=== PATIENT | female | born 1930 | race Caucasian/White ===

== ENCOUNTER 2016-05-18 18:18 | Inpatient (IN) | payer OTHER, MEDICARE ==
[~2016-05-18] VITALS: Ht 152.4 cm; Wt 49.9 kg
--- NOTE | ~2016-05-18 | EKG ---
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 : 1930 Requested By: Lorna Belcher Order Number: [id number] MD: Fuentes Mclaughlin Measurements Intervals [place] Rate: 79 P: 34 AL: 173 QRS: -30 QRSD: 91 T: -2 QT: 368 QTc: 422 Interpretive Statements Sinus rhythm Ventricular premature complex Left axis deviation Poor R wave progression Compared to ECG 05/15/2016 11:34:03 Ventricular premature complex(es) now present Electronically Signed On 05-20-2016 9:00:11 CDT by Fuentes Mclaughlin [email or web address] <ELECTRONICALLY SIGNED> By: Fuentes Mclaughlin MD, [facility] 05/20/16 0900 17 17 Fuentes Mclaughlin MD, [facility] /EPI
[~2016-05-18 18:18] MED LIST: ADVIL100 M2; ASPIR 8181 MG PO; AVELOX400 MG PO; CENTRUM SILVER1 EAC4 PO; COLACE100 MG PO; CRANBERRY 12,61 EACH PO; DUONEB 2.5-0.5 M3 ML INH; HEPARIN SO5000 UNIT/ SUBQ; HYDROCODONE-AP1 EAC6 PO; IBUPROFEN 400400 M2 PO; LASIX 20 MG TAB20 MG PO; LEVOFLOXACIN250 MG PO; LISINOPRIL20 MG PO; LOPRESSOR100 MG PO; LOPRESSOR50 PO; POTASSIUM20 PO; PROBIOTIC1 EAC1 PO; PROTONIX40 M1 PO; RESTORIL7.5 MG PO; SIMVASTATIN40 MG PO; TRAMADOL 50 MG50 MG PO; VITAMIN D1000 UNI1 PO; ZOFRAN ODT4 MG PO
[2016-05-18 18:19] VITALS: BP 168/77
[2016-05-18 18:52] LABS: ABSOLUTE NEUTROPHILS 3.4 thou/uL (1.4-8.2); BASOPHILS 0.5 % (0.0-2.0); EOSINOPHILS 0.6 % (0.0-3.0); HEMATOCRIT 33.5 % (37.0-47.0); HEMOGLOBIN 11.3 gm/dL (12.0-15.0); LYMPHOCYTES 29.7 % (24.0-44.0); MCH 29.1 pg (26.0-34.0); MCHC 33.8 g/dL (28.0-37.0); MCV 86.2 fL (80.0-100.0); MONOCYTES 8.1 % (1.0-8.0); PLATELET COUNT 192 thou/uL (150-400); POLYS 61.1 % (36.0-66.0); RBC 3.88 mil/uL (4.20-5.00); RDW 14.4 % (10.5-14.5); WBC 5.6 thou/uL (4.0-11.0)
[2016-05-18 18:54] LABS: MANUAL DIFF NO
[2016-05-18 19:10] LABS: ANION GAP 8 mmol/L (7-16); BUN 28 mg/dL (7-18); CALCIUM 8.5 mg/dL (8.5-10.1); CHLORIDE 101 mmol/L (98-107); CO2 25 mmol/L (21-32); CREATININE 0.9 mg/dL (0.6-1.3); GLUCOSE 98 mg/dL (70-99); POTASSIUM 3.7 mmol/L (3.5-5.1); SODIUM 134 mmol/L (136-145)
[2016-05-18 19:14] LABS: ALBUMIN 3.2 g/dL (3.4-5.0); ALKALINE PHOSPHATASE 65 U/L (46-116); SGOT 30 U/L (15-37); SGPT 22 U/L (30-65); TOTAL BILIRUBIN 0.3 mg/dL (<0.1-1.0); TOTAL PROTEIN 6.7 g/dL (6.4-8.2); TROPONIN-I < 0.04 ng/mL (<0.04-0.07)
[2016-05-18 22:23] VITALS: BP 147/65
[2016-05-18 22:45] VITALS: BP 137/73
[2016-05-19 04:00] VITALS: BP 136/77
[2016-05-19 08:15] VITALS: BP 148/63
[2016-05-19 14:15] VITALS: BP 127/57
[2016-05-19 15:24] LABS: URINE BILIRUBIN NEGATIVE (Negative); URINE BLOOD NEGATIVE (Negative); URINE COLOR YELLOW; URINE GLUCOSE-RANDOM* NEGATIVE (Negative); URINE KETONES 1+ (Negative); URINE LEUKOCYTES-REFLEX NEGATIVE (Negative); URINE PROTEIN (DIPSTICK) TRACE (Negative); URINE SPECIFIC GRAVITY >= 1.030 (1.003-1.035); URINE UROBILINOGEN 0.2 E.U./dl (0.2-1.0)
[2016-05-19 20:00] VITALS: BP 145/72
[2016-05-20 04:00] VITALS: BP 146/85
[2016-05-20 06:14] LABS: HEMATOCRIT 30.8 % (37.0-47.0); HEMOGLOBIN 10.4 gm/dL (12.0-15.0); MCHC 33.7 g/dL (28.0-37.0); MCV 86.1 fL (80.0-100.0); RBC 3.58 mil/uL (4.20-5.00); RDW 13.8 % (10.5-14.5); WBC 5.7 thou/uL (4.0-11.0)
[2016-05-20 06:36] LABS: ALBUMIN 2.6 g/dL (3.4-5.0); CALCIUM 7.8 mg/dL (8.5-10.1); CREATININE 0.7 mg/dL (0.6-1.3); POTASSIUM 3.1 mmol/L (3.5-5.1)
[2016-05-20 10:55] VITALS: BP 137/83
[2016-05-20 15:10] VITALS: BP 168/97
[2016-05-21 07:12] VITALS: BP 156/74
[2016-05-21] MEDS ORDERED: CEFTIN 250250 MG/52 PO (10:01)
[2016-05-21 11:04] VITALS: BP 156/74
[2016-05-21 12:03] VITALS: BP 156/74
== END 2016-05-21 12:17 | disposition home health service (06) | DRG 193 ==
LOC: ER 18:18 → 4E 21:51 → EROBS 21:51 → 4E 22:28
PROVIDERS: Hospitalist; Nurse Practitioner; Physician Assistant
DX: J15.9 Unspecified bacterial pneumonia (principal); E43 Unspecified severe protein-calorie malnutrition; E87.1 Hypo-osmolality and hyponatremia; I10 Essential (primary) hypertension; E78.00 Pure hypercholesterolemia, unspecified; M19.90 Unspecified osteoarthritis, unspecified site; M81.0 Age-related osteoporosis without current pathological fracture; E78.5 Hyperlipidemia, unspecified; I25.2 Old myocardial infarction; Z68.21 Body mass index [BMI] 21.0-21.9, adult; Z87.440 Personal history of urinary (tract) infections; Z87.19 Personal history of other diseases of the digestive system; Z90.49 Acquired absence of other specified parts of digestive tract; Z88.0 Allergy status to penicillin; Z88.1 Allergy status to other antibiotic agents; Z88.2 Allergy status to sulfonamides
CPT/HCPCS: 10183

== ENCOUNTER → 2016-06-10 | Outpatient (CLI) | payer OTHER, MEDICARE ==
[~2016-06-10] MED LIST changes: +CEFTIN 250250 MG/52 PO
== END ==
LOC: RAD 15:25
DX: J18.9 Pneumonia, unspecified organism (principal); R06.02 Shortness of breath; J98.4 Other disorders of lung; J98.11 Atelectasis

== ENCOUNTER 2018-03-18 18:01 | Emergency (ER) | payer OTHER, MEDICARE ==
[~2018-03-18] VITALS: Ht 149.9 cm; Wt 45.4 kg
[2018-03-18 19:55] VITALS: BP 160/80
== END 2018-03-18 19:55 | disposition home or self-care (01) ==
LOC: ER 18:01
DX: S09.90XA Unspecified injury of head, initial encounter (principal); M54.6 Pain in thoracic spine; I10 Essential (primary) hypertension; E78.00 Pure hypercholesterolemia, unspecified; M19.90 Unspecified osteoarthritis, unspecified site; M81.0 Age-related osteoporosis without current pathological fracture; Z90.49 Acquired absence of other specified parts of digestive tract; Z88.0 Allergy status to penicillin; Z88.2 Allergy status to sulfonamides; Z88.8 Allergy status to other drugs, medicaments and biological substances; W18.39XA Other fall on same level, initial encounter; Y93.89 Activity, other specified; Y92.000 Kitchen of unspecified non-institutional (private) residence as the place of occurrence of the external cause; Y99.8 Other external cause status

== ENCOUNTER 2018-10-21 18:55 | Inpatient (IN) | payer OTHER, MEDICARE ==
[~2018-10-21] VITALS: Ht 152.4 cm; Wt 43.9 kg
--- NOTE | ~2018-10-21 | O ---
[facility] [place] [address] OPERATIVE REPORT Name: SUPRIYA GARIBAY Room #: 418-P [facility] IN M.R.#: [id number] Admission: 10/21/18 Attend Phys: Buffy Glaser Discharge: Date of : 28 Report #: [id number] THIS REPORT FOR: //name// CC: Buffy Knox DATE OF SERVICE: 10/22/2018 PREOPERATIVE DIAGNOSIS: Left hip intertrochanteric/subtrochanteric fracture. POSTOPERATIVE DIAGNOSIS: Left hip intertrochanteric/subtrochanteric fracture. PROCEDURE: Left hip trochanteric femoral nail. SURGEON: Dr. Lucien Kirby. ANESTHESIA: General. ESTIMATED BLOOD LOSS: Minimal. DRAINS: No drains. TOURNIQUET TIME: Zero. ESTIMATED BLOOD LOSS: Minimal. COMPLICATIONS: There were no complications. DESCRIPTION OF PROCEDURE: The patient brought to the operating room where she was placed under general anesthesia. Once under adequate general anesthesia, she was placed onto the fracture table. A reduction maneuver was performed for the fracture, placing the extremity into traction. Excellent reduction was achieved. Once complete, the left hip was then prepped and draped in a sterile manner. A 2 cm incision proximal to the tip of the greater trochanter was then made. The curved cannulated awl was then placed and a guide aldo placed down the shaft of the femur. Subsequent to this, an 11 mm trochanteric femoral nail was placed through the outrigger jig. A separate 2 cm incision was made for the blade. A guidewire was then placed for this. The lateral cortex was opened and the blade was then subsequently placed in a center-center position in the femoral head. Similarly, through the outrigger jig, a single transverse locking screw was placed through the trochanteric femoral nail. Excellent fixation and alignment was achieved as verified under fluoroscopy. The wounds were then irrigated copiously and closed with 2-0 Vicryl in subcutaneous tissues and bianca were used for the skin. The wound was dressed with Xeroform, 4 x 4s, and sterile soft compressive dressing was placed. There were no complications [address] [address] OPERATIVE REPORT Name: SUPRIYA GARIBAY Room #: 418-P [facility] IN M.R.#: [id number] Admission: 10/21/18 Attend Phys: Buffy Glaser Discharge: Date of : 29 Report #: [id number] from the procedure. The patient tolerated the procedure well and went to the recovery room without incident. By: [id number] Lucien Kirby MD /nt
--- NOTE | ~2018-10-21 | EMS ---
[address] [address] EMS Patient Care Report Name: SUPRIYA GARIBAY Room #: REG HOMERO Booker#: [id number] Admission: 10/21/18 Attend Phys: Discharge: Date of : 29 Report #: [id number] THIS REPORT FOR: //name// Report Transmitted: 10/21/2018 18:32 EMS Care Summary [facility] MED-ACT Incident [id number] @ 10/21/2018 18:09 Incident Location [address] [place] [address] Patient NICOLE GARIBAY Female, 88 Years 1930 Patient Address [address] [place] [address] Patient History Hypertension,Hyperlipidemia, Patient Allergies Penicillin allergy,Bactrim,Other drug allergy,Meloxicam, Patient Medications Simvastatin, Hydrocodone, Lisinopril, Metoprolol, Chief Complaint "My hip hurts." Disposition Transported No Lights/Deal Dispatch Reason Falls Transported To [facility] Narrative Upon arrival to scene we find pt lying supine on the floor showing outward signs of pain with no obvious ABC deficits. Pt reports that, approximately 30 minutes prior to EMS call, she tripped over her walker, causing her to fall to the floor. Pt reports to hitting her head but denies loss of consciousness and [address] [address] EMS Patient Care Report Name: SUPRIYA GARIBAY Room #: REG HOMERO Booker#: [id number] Admission: 10/21/18 Attend Phys: Discharge: Date of : 29 Report #: [id number] denies use of anticoagulants. Pt is currently complaining of pain in her left hip and left shoulder. Pt denies all further complaints at this time. Pt carried to cot with scoop stretcher which is then removed before initiating transport. Pt condition monitored throughout transport with decrease in pain rating. [facility] notified via [employer] with information only. - Fentanyl administered prior to obtaining first blood pressure as pt has chronic tremors of upper arms which were exacerbated by pain. Pt was noted to have a strong radial pulse and no signs of impaired perfusion prior to administration. Pt transported to [facility]. Pt taken to ER room 1 and assisted to bed via sheet drag. Full verbal report given to staff. Initial Vitals @18:44P: 83,R: 18,BP: 176/100,Pain: 8/10,SpO2: 96,AL Suspected: false @18:34P: 91,R: 18,BP: 175/99,Pain: 8/10,GCS: 15,SpO2: 95,Revised Trauma: 12,AL Suspected: false @PTAP: 80,R: 18,Pain: 10/10,GCS: 15,SpO2: 95, Assessments @18:16MENTAL:Person Oriented,Time Oriented,Event Oriented,Place Oriented,SKIN:HEENT:Eyes: Right Pupil: 3-mm,Eyes: Left Pupil: 3-mm,Neck/Airway: No Abnormalities,LUNG SOUNDS:ABDOMEN:PELVIS//GI:Tenderness,EXTREMITIES:Left Arm: Other,Left Leg: Other,Right Arm: No Abnormalities,Right Leg: No Abnormalities,PULSE:Radial: 2+ Normal,NEURO:No Abnormalities, Impression Injury of Hip Procedures @18:22Saline Lock 10cc (20 ga) Site: Antecubital-RightResponse: UnchangedSucceeded@18:24Fentanyl - 50 Micrograms (mcg) - Intravenous (IV)Response: Unchanged@18:45Fentanyl - 50 Micrograms (mcg) - Intravenous (IV)Response: Improved Timeline CLINICAL TECHNOLOGIST,BP: / M,PULSE: 80,RR: 18 R,SPO2: 95 Ox,ETCO2: ,BG: ,PAIN: 10,GCS: 15, 18:08,Call Received 18:08,Psap Call 18:09,Dispatched 18:09,En Route 18:14,On Scene 18:15,At Patient 18:22,Saline Lock 10cc 20 ga Site: Antecubital-Right,Response: [address] [address] EMS Patient Care Report Name: SUPRIYA GARIBAY Room #: REG Yaneli.#: [id number] Admission: 10/21/18 Attend Phys: Discharge: Date of : 28 Report #: [id number] UnchangedSucceeded, 18:24,Fentanyl - 50 Micrograms (mcg) - Intravenous (IV),Response: Unchanged 18:34,BP: 175/99 M,PULSE: 91,RR: 18 R,SPO2: 95 Ox,ETCO2: ,BG: ,PAIN: 8,GCS: 15, 18:40,Depart Scene 18:44,BP: 176/100 M,PULSE: 83,RR: 18 R,SPO2: 96 Ox,ETCO2: ,BG: ,PAIN: 8,GCS: , 18:45,Fentanyl - 50 Micrograms (mcg) - Intravenous (IV),Response: Improved 18:53,At Destination 19:11,Call Closed Disclaimer v1.1 Copyright 2019 [employer] This EMS Care Summary contains data elements from the applicable legal record (which may be displayed differently). It is designed to provide pertinent information for the following purposes: continuity of care, clinical quality, and state data reporting. The complete legal record is available to ED staff and administrators of the receiving hospital in [employer]'s Patient Tracker. All data is provided "as is."
[2018-10-21 18:58] VITALS: BP 125/99
[2018-10-21] MEDS ORDERED: NORCO 7.5-3251 EACH PO (19:15)
[2018-10-21] MEDS ORDERED: METAMUCIL1 EAC1 PO (19:17)
[2018-10-21] MEDS ORDERED: MIRALAX17 G1 PO (19:17)
[2018-10-21 20:30] LABS: CALCIUM 9.2 mg/dL (8.5-10.1); CREATININE 1.1 mg/dL (0.6-1.0); POTASSIUM 4.5 mmol/L (3.5-5.1)
[2018-10-21 20:33] LABS: MCHC 34.1 g/dL (28.0-37.0)
[2018-10-21 20:35] LABS: ABSOLUTE NEUTROPHILS 3.5 thou/uL (1.4-8.2); BASOPHILS 1.1 % (0.0-2.0); EOSINOPHILS 2.6 % (0.0-3.0); HEMATOCRIT 31.8 % (37.0-47.0); HEMOGLOBIN 10.8 gm/dL (12.0-15.0); LYMPHOCYTES 33.8 % (24.0-44.0); MCH 30.8 pg (26.0-34.0); MCV 90.5 fL (80.0-100.0); MONOCYTES 7.3 % (1.0-8.0); PLATELET COUNT 197 thou/uL (150-400); POLYS 55.2 % (36.0-66.0); RBC 3.51 mil/uL (4.20-5.00); RDW 14.1 % (10.5-14.5); WBC 6.3 thou/uL (4.0-11.0)
[2018-10-21 20:40] LABS: APTT 25.7 Seconds (24.5-32.8); PROTIME 10.2 Seconds (9.3-11.4)
[2018-10-21 21:29] VITALS: BP 158/77
--- NOTE | 2018-10-21 21:30 | NUR ---
HAND OFF TOOL PRINTED TO 4EAST
--- NOTE | 2018-10-21 21:48 | NUR ---
CALLED REPORT TO THE FLOOR
[2018-10-21 21:58] VITALS: BP 132/49
[2018-10-21 22:20] VITALS: BP 135/79
--- NOTE | 2018-10-21 23:18 | NUR ---
ASSUMED CARE FROM ED, PT C/O NAUSEA AND PAIN BLOWER FEEDER DYED RAW STOCK NOTIFED ORDER RECIEVED MEDICATION GIVEN PT TOLERATED , DATA BASE COMPLETED AND ASSESSMENT COMPLETED. SONS AT BEDSIDE. REPOSTION FOR COMFORT, DISCUSSED PLAN OF CARE AND AGREEABLE WILL FOLLOW PLAN OF CARE AND REPORT CHANGES.
[2018-10-22 00:01] VITALS: BP 126/75
[2018-10-22 05:36] VITALS: BP 110/59
--- NOTE | 2018-10-22 09:42 | NUR ---
PATIENT CARE WAS ASSUMED AT 0715.PATIENT IS ALERT AND ORIENTED X 4.ON BEDREST DUE TO LEFT HIP FX.PATIENT HAS COMPLAINS OF PAIN 8/10.PATIENT WAS GIVEN PAIN MEDICATION EARLY THIS MORNING.PATIENT HAS BEEN NPO AFTER MIDNIGHT FOR SURGERY, PT WAS GIVEN B/P MEDICATION WITH THE OKAY WITH SURGERY.PATIENT HAS O2 AT 2L ON NCDUE TO PAIN MEDICATION GIVEN.USUALLY DOESN'T WEAR O2 AT HOME.SON IS AT BEDSIDE.REPORT WAS GIVEN SURGERY NURSE, AND CONSENT IS IN FRONT CHART READY TO BE SIGNED AFTER DOCTOR SPEAKS TO PATIENT AND FAMILY.IV IS INTACT AND SALINE AT THIS TIME, BUT HAS FLUIDS INFUSING REGULARLY.PT HAS CALL LIGHT,PHONE AND PERSONAL BELONGINGS WITHIN REACH.FALL PRECAUTIONS ARE IN PLACE.
--- NOTE | 2018-10-22 17:06 | NUR ---
PT ADMITTED RELATED TO S/P FALL FX LEFT HIP. CM REVIEWED CHART AND SPOKE WITH CARE TEAM. CM MET WITH PT'S SON JORDAN AT BEDSIDE PT WAS SLEEPING. JORDAN INDICATED THAT HE RESIDES IN A HOUSE WITH PT . HE INDICATED IT'S A RANCH STYLE HOUSE WITH NO STEPS. HE INDICATED THAT PT HAD USED A 4WW WITH A SEAT TO ASSIST WITH MOBILITY BASEBALL GLOVE SHAPER. HE INDICATED THAT PT HAD BEEN INDEPDENENT WITH ADLS BASEBALL GLOVE SHAPER. HE INDICATED PT HAD BEEN SKILLED AT [facility] AND HAD HH SERVICES ABOUT 3 YEARS AGO. JORDAN INDICATED THAT THEY WOULD PREFER FOR TO PT GO TO [facility] IF SHE NEEDS POST ACUTE CARE STAY UPON DC. CM NOTIFIED LIAISON. CM TO FOLLOW INDICATED WITH DC PLANNING.
--- NOTE | 2018-10-22 18:17 | NUR ---
PATIENT ARRIVED BACK FROM SURGERY AROUND 1320.PATIENT WAS VERY DROWSY FROM PAIN MEDS FROM PACU.OXYGEN AT 2L WAS PLACE ON PATIENT DUE TO PAIN MEDS.PATIENT HAS CLARKE IN PLACE D/D.FAMILY IS AT BEDSIDE.PATIENT WAS GIVEN CLEAR FLUIDS UPON COMING BACK TO THE FLOOR, AND THEIR DIET IS [facility] TOLERATED.THIS WAS TOLD TO PATIENT.SURGERY VITALS WERE TAKEN.PATIENT IS RESTING COMFORTABLLY IN BED, CALL LIGHT, PHONE, AND PERSONAL BELONGINGS WITHIN PATIENT/OR FAMILIES REACH.
[2018-10-22 20:55] VITALS: BP 123/70
[2018-10-22 23:15] VITALS: BP 110/51
--- NOTE | 2018-10-23 03:51 | NUR ---
PATIENT ALERT AND ORIENTED X4. CLARKE PATENT CLEAR YELLOW URINE. DRESSING ON L HIP D/I. SLEPT OFF AND ON DURING NIGHT. C/O PAIN, MED GIVEN. SON AT BEDSIDE.
--- NOTE | 2018-10-23 07:47 | NUR ---
DURING REPORT REC ALERT TO PT'S B/P BEING 80/40S, CHECKED MANUALLY 90/50S [address] DR BRADSHAW KNOW, PT HAS BEEN ON CLEAR LIQUIDS AND SON STATES SHE HASNT INGESTED MUCH AT ALL. GAVE APPLE JUICE, ASKED NOC NURSE ABOUT DIET AND SHE SAID ORDERS WOULD BE ADV TOLERATED. WILL ENTER AN ORDER AND CONTINUE TO MONITOR
[2018-10-23 07:50] VITALS: BP 83/48
[2018-10-23 11:06] LABS: HEMATOCRIT 18.6 % (37.0-47.0); HEMOGLOBIN 6.4 gm/dL (12.0-15.0)
--- NOTE | 2018-10-23 13:54 | EKG ---
[address] [place] [address] ELECTROCARDIOGRAM REPORT Name: SUPRIYA GARIBAY Room #: 418-P ADM IN M.R.#: [id number] Admission: 10/21/18 Attend Phys: Buffy Glaser Discharge: Date of : 28 Report #: [id number] THIS REPORT FOR: //name// [facility] ED Test Date: 2018-10-21 Test Time: 20:28:35 Pat Name: SUPRIYA GARIBAY Department: Room: [facility] Gender: F It Director: CLAUDIA : 1930 Requested By: Aylin Wolf Order Number: [id number] MD: Fuentes Mclaughlin Measurements Intervals [place] Rate: 79 P: -5 [place]: 174 QRS: -33 QRSD: 83 T: 41 QT: 361 QTc: 414 Interpretive Statements Sinus rhythm Left axis deviation Abnormal R-wave progression, early transition Consider anterior infarct Compared to ECG 05/18/2016 19:18:51 Ventricular premature complex(es) no longer present Electronically Signed On 10-23-2018 13:53:54 CDT by Fuentes Mclaughlin [email or web address] <ELECTRONICALLY SIGNED> By: Fuentes Mclaughlin MD, [facility] 10/23/18 1353 27 27 Fuentes Mclaughlin MD, [facility] /EPI
--- NOTE | 2018-10-23 14:03 | EKG ---
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 : 1930 Requested By: Soto Travis Order Number: [id number] MD: Fuentes Mclaughlin Measurements Intervals [place] Rate: 99 P: 34 [place]: 46 QRS: -32 QRSD: 95 T: -9 QT: 372 QTc: 478 Interpretive Statements Sinus rhythm Inferior infarct, 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
--- NOTE | 2018-10-23 14:25 | NUR ---
NOTED HGB AT 1137 STILL LOW AFTER RE-DRAW, WORK PHONE RANG TWICE WHILE HANDS GLOVED AND WORKING W/BLOOD PRODUCT, ORDERS FOR RECOGNITION OF BLOOD TYPE ACKNOWLEDGED. WILL CONTINUE TO MONITOR
--- NOTE | 2018-10-23 14:33 | NUR ---
FAXED REFERRAL TO [facility] SPOKE WITH CHRISSY IN ADM SHE RECEIVED REFERRAL AND CAN ACCEPT AT DC. DCP TO FOLLOW.
--- NOTE | 2018-10-23 16:27 | NUR ---
[facility] CAN ACCEPT PT FOR ADMISSION FRIDAY. CM CALLED AND NOTIFIED PT'S SON JORDAN. CLARENCE TO ASSIST INDICATED WITH DC PLANNING.
--- NOTE | 2018-10-23 16:42 | NUR ---
GOT FLOATED TO ANOTHER FLOOR GAVE REPORT TO FOLLOWING RN
[2018-10-23 16:51] VITALS: BP 86/35
--- NOTE | 2018-10-23 17:43 | NUR ---
PATIENT WILL BE RECEIVING A UNIT OF BLOOD THIS PM. SHE IS WEAK, BP REMAINS LOW. DENIES PAIN AT THIS TIME. RESPIRATIONS NON LABORED. WILL CONT WITH PLAN OF CARE.
[2018-10-23 18:12] VITALS: BP 104/54; BP 106/38; BP 91/48
[2018-10-23 21:00] VITALS: BP 104/54
[2018-10-24 03:30] VITALS: BP 113/60
--- NOTE | 2018-10-24 03:38 | NUR ---
ASSUMED PT CARE AT 1900. PT A&OX4. PT RECIEVED 1UNIT OF BLOOD. OXYGEN SATURATION ALTERNATES FROM 89 TO 96%. PT WAS AT 3L OF OXYGEN AT CHANGE OF SHIFT BUT WAS TITRATED DOWN TO 1L. AROUND 0340, PT O2 SAT WAS 89, OXYGEN WAS TITRATED BACK TO 2L AND PT SATS WENT UP TO 94% PT WAS MEDICATED FOR GENERALIZED PAIN. PT IS MORE AWAKE AND ORIENTED THIS AM THAN SHE WAS AT THE BEGINNING OF THE SHIFT. FALL PPREC IN PLACE. CALL MCCLAIN WITHIN REACH. SON AT BEDSIDE AT ALL TIMES
[2018-10-24 05:02] LABS: HEMATOCRIT 23.3 % (37.0-47.0); MCH 30.4 pg (26.0-34.0); MCHC 34.3 g/dL (28.0-37.0); MCV 88.6 fL (80.0-100.0); RBC 2.63 mil/uL (4.20-5.00); RDW 14.3 % (10.5-14.5); WBC 10.5 thou/uL (4.0-11.0)
[2018-10-24 07:48] VITALS: BP 121/64
[2018-10-24 17:24] VITALS: BP 106/55
[2018-10-24 19:21] VITALS: BP 120/56
--- NOTE | 2018-10-24 19:48 | NUR ---
ASSUMED CARE OF PATIENT AT 0715, PATIENT ALERT. C/O PAIN WITH BACK AND LEFT HIP AREA. PATIENT RECIVED HYDROCODONE 5MG X 3 THIS SHIFT, NEW ORDER FOR HYDROCODONE 7.5 MG EVERY 4 HOURS PRN, PER FAMILY REQUEST. PHYSICAL THERAPY WORKED WITH THE PATIENT, UP TO CHAIR WITH MODERATE-MAX ASSIST WITH GAILT BELT. PATIENT STAYED UP UNTIL ABOUT 1200, ASSISTED BACK TO BED BY PHYSICAL THERAPY. PATIENT HAD RIGHT FOREARM IV IN PLACE WITH NS AT 80CC/HR GOING CONT. IV SITE DISLODGED, NEW IV INSERTED RIGHT FOREARM. O2 AT 1-2 LITERS/NC THIS SHFT, RT CHECKED ON THE PATIENT THIS SHIFT. FAMILY SAY AT BEDSIDE THE WHOLE SHIFT. WILL CONTINUE TO MONITOR. CLARKE CATHETER STILL IN PLACE.
--- NOTE | 2018-10-25 03:34 | NUR ---
ASSUMED CARE OF PT AT 1900. PT A&O BUT FORGETFUL AT TIMES. PT C/O PAIN IN BACK, HIP AND NECK. PAIN IS EXTREME WITH REPOSITIONING. PT AND FAMILY REQUESTED TO HAVE PT PAIN MED Q4HRS ROUND THE CLOCK. PT IS HAVING DIFFICULTY FALLING ASLEEP, BUT SHE STATES THIS IS HER BASELINE. PT WILL LIKE TO TRY SOME MELATONIN FOR TONIGHT IF SHE WILL STILL BE HERE.
[2018-10-25 06:10] VITALS: BP 111/51
[2018-10-25 06:21] LABS: HEMATOCRIT 20.6 % (37.0-47.0); HEMOGLOBIN 7.1 gm/dL (12.0-15.0); MCH 30.6 pg (26.0-34.0); MCHC 34.3 g/dL (28.0-37.0); RBC 2.31 mil/uL (4.20-5.00); RDW 14.2 % (10.5-14.5); WBC 8.1 thou/uL (4.0-11.0)
[2018-10-25 07:31] VITALS: BP 108/60
[2018-10-25 10:39] VITALS: BP 106/51; BP 123/55
--- NOTE | 2018-10-25 17:57 | NUR ---
Patient has complained of "unrelieved pain" throughout this shift. She has been given Hydrocodone every 4 hours to no avail. Patient was given Morphine 4mg IV x's 1 with minimal relief. New orders recieved from Dr Glaser :discontinue Morphine IV push, start Fentanyl 25mcg IV push q 4 hours, pain. Family has been at bedside throughout the shift; education provided. Patient had Blood Transfusion x's 1 for non-acute hemorrhage indication : Hgb < 8 g/dL. She tolerated this well. Will continue to monitor.
[2018-10-25 19:26] VITALS: BP 155/82
--- NOTE | 2018-10-26 01:18 | NUR ---
ASSESSMENT COMPLETED. PT IS ALERT AND ORIENTED WITH SON BY THE BEDSIDE. PT GIVEN SUPPOSITORY AT CHANGE OF SHIFT.NO BM YET. PT WITH CLARKE TO D/D.IV FLUIDS STARTED PER ORDERS. PT DRSG TO L HIP IS C/D/I. BP TENDING UPWARDS BUT BP MEDS ARE STILL ON HOLD- WILL LET DOC EVALUATE IN THE AM. AFEBRILE.DENIES COUGH.CONTINUES ON IV FENTANYL FOR PAIN MGT. PT REPORTS RELIEF.SCDS IN PLACE.REPOSITIONING PROVIDED TO THE POINT WHERE PT COULD TOLERATE.WILL CONTINUE WITH POC TILL EOS.
[2018-10-26 05:23] LABS: HEMATOCRIT 26.5 % (37.0-47.0); MCH 30.8 pg (26.0-34.0); MCHC 34.4 g/dL (28.0-37.0); MCV 89.4 fL (80.0-100.0); RBC 2.96 mil/uL (4.20-5.00); RDW 14.2 % (10.5-14.5); WBC 8.9 thou/uL (4.0-11.0)
[2018-10-26 05:25] LABS: HEMOGLOBIN 9.1 gm/dL (12.0-15.0)
[2018-10-26 05:54] VITALS: BP 216/145
[2018-10-26 06:17] VITALS: BP 130/62
[2018-10-26 07:00] VITALS: BP 153/68
[2018-10-26] MEDS ORDERED: NORCO 7.5-3251 EACH PO (10:17)
[2018-10-26 10:31] VITALS: BP 153/68
--- NOTE | 2018-10-26 13:35 | NUR ---
Received order from physician to d/c to SNF today. Per previous CM note, pt has been accepted to [facility]. [facility] is able to accept pt today. Their w/c van will be able to transport at 1400 today. Chart copied. Faxed orders to facility. Son in room and is agreeable with plans. No other needs identified.
--- NOTE | 2018-10-26 14:49 | NUR ---
Patient discharged to rehabilitation facility at 1430 via transportation company, accompanied by son. Patient was given Hydrocodone 7/325mg po at approximately 1345 for unrelieved left hip pain. Dressing to left hip was clean, dry et intact. Patient left with Discharge Paperwork. This nurse left 2 voicemails to Admitting Nurse at recieving facility (last message left at 1440). At this time, there has been no return phonecall to give this facility a "nurse to nurse" report.
== END 2018-10-26 15:41 | DRG 481 ==
LOC: ER 18:55 → 4E 20:23 → EROBS 20:23 → 4E 22:15
PROVIDERS: Emergency Medicine; ADMIT Hospitalist
PROC: 0QS704Z Reposition Left Upper Femur with Internal Fixation Device, Open Approach (ICD-10-PCS; principal; 2018-10-22)
PROC: 30233N1 Transfusion of Nonautologous Red Blood Cells into Peripheral Vein, Percutaneous Approach (ICD-10-PCS; 2018-10-23)
DX: S72.142A Displaced intertrochanteric fracture of left femur, initial encounter for closed fracture (principal); D62 Acute posthemorrhagic anemia; S72.22XA Displaced subtrochanteric fracture of left femur, initial encounter for closed fracture; I95.9 Hypotension, unspecified; M81.0 Age-related osteoporosis without current pathological fracture; I10 Essential (primary) hypertension; W01.0XXA Fall on same level from slipping, tripping and stumbling without subsequent striking against object, initial encounter; E78.5 Hyperlipidemia, unspecified; K59.00 Constipation, unspecified; E55.9 Vitamin D deficiency, unspecified; G89.29 Other chronic pain; E78.00 Pure hypercholesterolemia, unspecified; M19.90 Unspecified osteoarthritis, unspecified site; Z90.49 Acquired absence of other specified parts of digestive tract; Z88.0 Allergy status to penicillin; I25.2 Old myocardial infarction; Z88.2 Allergy status to sulfonamides; Z88.1 Allergy status to other antibiotic agents; Z88.8 Allergy status to other drugs, medicaments and biological substances; Y93.89 Activity, other specified; Y92.89 Other specified places as the place of occurrence of the external cause; Y99.8 Other external cause status; Z79.899 Other long term (current) drug therapy
CPT/HCPCS: 10084; 50010; 50101; 50386; 50455; 50635; 51412; 51538; 51817; 52145; 52146; 52304; 56524; 57092; 62110; 62900; 70005